=== PATIENT | male | born 1960 | race Caucasian/White ===

== ENCOUNTER 2019-01-06 15:33 | Outpatient (CLI) | payer OTHER ==
--- NOTE | 2019-01-06 16:13 | RAD ---
LUMBAR SPINE SERIES TWO TO THREE VIEWS: INDICATIONS: Disability exam. FINDINGS: There is mild degenerative change of the lumbar spine with mild endplate osteophytosis and slight dis k space narrowing. Multilevel facet osteoarthritis is present. There is levocurvature of the lumbar spine, centered at the mid aspect. No significant subluxation. IMPRESSION: Multilevel mild degenerative change of the lumbar spine, without acute compression fracture or signif icant subluxation identified. POS: JOSE
== END 2019-01-06 15:34 | disposition home or self-care (01) ==
LOC: BICRAD 15:33
PROVIDERS: ATTEND Internal Medicine
DX: Z02.71 Encounter for disability determination (principal); M47.816 Spondylosis without myelopathy or radiculopathy, lumbar region
CPT/HCPCS: 72100

== ENCOUNTER 2019-05-31 18:54 | Emergency (ER) | payer OTHER | END 2019-05-31 21:31 | disposition home or self-care (01) | LOC: ERS 18:54 | DX: T49.91XA Poisoning by unspecified topical agent, accidental (unintentional), initial encounter (principal); L25.3 Unspecified contact dermatitis due to other chemical products; E11.9 Type 2 diabetes mellitus without complications; Z79.4 Long term (current) use of insulin; Z79.82 Long term (current) use of aspirin; Z79.899 Other long term (current) drug therapy | CPT/HCPCS: 99282 ==

== ENCOUNTER 2019-08-21 07:42 | Emergency (ER) | payer OTHER ==
[2019-08-21] MEDS ORDERED: Dextrose 50% Abboject 50 ML SYRINGE ONE (07:47)
[2019-08-21 08:39] LABS: #Basophils 0.1 thou/uL (0.0-0.2); #Eosinphils 0.1 thou/uL (0.0-0.7); #Lymphocytes 1.9 thou/uL (1.20-3.40); #Monocytes 0.7 thou/uL (0.11-0.59); #Neutrophils 5.1 thou/uL (1.40-6.50); %Basophils 1.1 % (0.0-1.0); %Eosinophils 1.8 % (0.0-10.0); %Lymphocytes 24.3 % (21.0-51.0); %Monocytes 8.8 % (0.0-10.0); %Neutrophils 63.9 % (42.0-75.0); Hemoglobin 14.1 g/dL (14.0-18.0); Mean Corpuscular HGB CONC 32.4 g/dL (32.0-36.0); Mean Corpuscular Hemoglobin 30.5 pg (27.0-31.0); Mean Platelet Volume 7.2 fL (7.4-10.4); Platelet Count 241 thou/uL (130-400); RBC Distribution Width 12.4 % (11.5-14.5); Red Blood Cell (RBC) Count 4.63 mill/uL (4.70-6.10)
[2019-08-21 08:57] LABS: ALT (SGPT) 28 U/L (8-55); AST (SGOT) 34 U/L (5-34); Albumin 3.9 g/dL (3.5-5.0); Alkaline Phosphatase 54 U/L (40-110); Anion Gap 14 mmol/L (10-20); BUN (Urea Nitrogen) 19 mg/dL (8.4-25.7); Bilirubin, Total 0.6 mg/dL (0.2-1.2); Calc. Creatinine Clearance 0 mL/min (70-130); Calcium 8.4 mg/dL (7.8-10.44); Carbon Dioxide 23 mmol/L (22-29); Chloride 105 mmol/L (98-107); Estimated GFR-MDRD 66; Globulin 2.2 g/dL (2.4-3.5); Glucose 143 mg/dL (70-105); Protein, Total 6.1 g/dL (6.0-8.3); Sodium 138 mmol/L (136-145)
== END 2019-08-21 09:22 | disposition home or self-care (01) ==
LOC: ERS 07:42
DX: E11.649 Type 2 diabetes mellitus with hypoglycemia without coma (principal); E78.5 Hyperlipidemia, unspecified; E78.00 Pure hypercholesterolemia, unspecified; I10 Essential (primary) hypertension; Z79.4 Long term (current) use of insulin; Z79.899 Other long term (current) drug therapy; Z79.82 Long term (current) use of aspirin
CPT/HCPCS: 36415; 36416; 80053; 85025; 93005; 96374

== ENCOUNTER 2020-06-18 16:30 | Outpatient (CLI) | payer OTHER | END 2020-06-18 16:31 | disposition home or self-care (01) | LOC: SLEEPLAB 16:30 | PROVIDERS: ATTEND Family Medicine | DX: G47.33 Obstructive sleep apnea (adult) (pediatric) (principal); R53.83 Other fatigue; G47.00 Insomnia, unspecified; R06.83 Snoring; F41.9 Anxiety disorder, unspecified; E66.9 Obesity, unspecified; I10 Essential (primary) hypertension; E11.9 Type 2 diabetes mellitus without complications; G47.10 Hypersomnia, unspecified; F32.9 Major depressive disorder, single episode, unspecified; Z68.29 Body mass index [BMI] 29.0-29.9, adult | CPT/HCPCS: 95806 ==

== ENCOUNTER 2023-02-05 13:34 | Outpatient (CLI) | payer MEDICARE | END 2023-02-05 13:35 | disposition home or self-care (01) | LOC: RAD 13:34 | PROVIDERS: ATTEND Family Medicine | DX: M25.511 Pain in right shoulder (principal) ==

== ENCOUNTER 2023-03-07 07:01 | Outpatient (CLI) | payer MEDICARE | END 2023-03-07 07:02 | disposition home or self-care (01) | LOC: BICMRI 07:01 | PROVIDERS: ATTEND Surgery | DX: L97.929 Non-pressure chronic ulcer of unspecified part of left lower leg with unspecified severity (principal) | CPT/HCPCS: 82565 ==

== ENCOUNTER 2023-08-26 12:22 | Inpatient (IN) | payer MEDICARE ==
[2023-08-26] MEDS ORDERED: Ondansetron PF 4 MG/2 ML Vial IVP PRN (15:50)
[2023-08-26 15:52] LABS: #Basophils 0.1 thou/uL (0.0-0.2); #Monocytes 1.6 thou/uL (0.11-0.59); #Neutrophils 14.1 thou/uL (1.40-6.50); %Basophils 0.4 % (0.0-1.0); %Eosinophils 0.1 % (0.0-10.0); %Lymphocytes 10.3 % (21.0-51.0); %Neutrophils 79.8 % (42.0-75.0); Hematocrit 42.2 % (42.0-52.0); Hemoglobin 14.6 g/dL (14.0-18.0); Mean Corpuscular HGB CONC 34.6 g/dL (32.0-36.0); Mean Corpuscular Volume 86.8 fl (78.0-98.0); Mean Platelet Volume 9.7 fL (7.4-10.4); Platelet Count 261 10x3/uL (130-400); RBC Distribution Width 12.9 % (11.5-14.5); Red Blood Cell (RBC) Count 4.86 mill/uL (4.70-6.10); White Blood Cell (WBC) Count 17.6 10x3/uL (4.8-10.8)
[2023-08-26] MEDS ORDERED: Dextrose 50% Abboject 50 ML SYRINGE SLOW IVP PRN (15:59)
[2023-08-26] MEDS ORDERED: Morphine 2 MG/ML VIAL SLOW IVP PRN (15:59)
[2023-08-26] MEDS ORDERED: Morphine 4 MG/ML VIAL SLOW IVP PRN (15:59)
[2023-08-26] MEDS ORDERED: Glucagon 1 MG/ML KIT IM PRN (15:59)
[2023-08-26] MEDS ORDERED: Dextrose 5% in Water 1,000 ML IV PRN (15:59)
[2023-08-26] MEDS ORDERED: Sodium Chloride 0.9% 100 ML ONE ×2 (16:16→17:39)
[2023-08-26] MEDS ORDERED: Cefepime 2 GM VIAL ONE (16:16)
[2023-08-26] MEDS ORDERED: Boostrix 0.5 ML (Tdap) VIAL (>/=7 yrs of age) ONE (16:16)
[2023-08-26] MEDS ORDERED: EPINEPHrine 1 MG/ML VIAL ONE (16:37)
[2023-08-26] MEDS ORDERED: Bupivacaine 0.25% HCL 30 ML VIAL ONE (16:37)
[2023-08-26] MEDS ORDERED: Vancomycin 1 GM VIAL ONE (16:37)
[2023-08-26] MEDS ORDERED: fentaNYL PF 100 MCG/2 ML SYRINGE ONE ×2 (16:47→17:57)
[2023-08-26] MEDS ORDERED: PROPOFOL 20 ML ONE (16:47)
[2023-08-26] MEDS ORDERED: Lidocaine 1% PF 5 ML VIAL ONE (16:48)
[2023-08-26] MEDS ORDERED: Ondansetron PF 4 MG/2 ML Vial ONE (16:48)
[2023-08-26] MEDS ORDERED: Rocuronium Bromide 10 MG/ML (10ML VIAL) ONE (16:48)
[2023-08-26] MEDS ORDERED: Vancomycin 1 GM/200 ML (FROZEN) BAG ONE (16:53)
[2023-08-26] MEDS ORDERED: Phenylephrine 10 MG/ML VIAL ONE (17:39)
[2023-08-26] MEDS ORDERED: SUGAMMADEX SODIUM 200 MG/2 ML VIAL ONE (17:56)
[2023-08-26] MEDS ORDERED: Ketorolac Tromethamine 30 MG/ML VIAL IVP PRN (18:17)
[2023-08-26] MEDS ORDERED: Promethazine HCl 25 MG/ML VIAL IM PRN (18:17)
[2023-08-26] MEDS ORDERED: Ondansetron HCl/PF 4 MG/2 ML Vial IVP PRN (18:17)
[2023-08-26] MEDS ORDERED: HYDROmorphone 2 MG/ML VIAL SLOW IVP PRN (18:17)
[2023-08-26] MEDS ORDERED: Ketorolac Tromethamine 30 MG (1 mL) VIAL ONE (18:30)
[2023-08-26] MEDS ORDERED: HYDROcodone/Acetaminophen 10/325 mg Tablet PO PRN (18:32)
[2023-08-26] MEDS ORDERED: Communication Order-Pharmacy FS SCH (18:45)
[2023-08-26 19:50] LABS: ALT (SGPT) 16 U/L (8-55); AST (SGOT) 15 U/L (5-34); Albumin 3.3 g/dL (3.4-4.8); Alkaline Phosphatase 46 U/L (40-110); Anion Gap 13 mmol/L (10-20); BUN (Urea Nitrogen) 23 mg/dL (8.4-25.7); Bilirubin, Total 0.9 mg/dL (0.2-1.2); Calc. Creatinine Clearance 0 mL/min (70-130); Calcium 8.3 mg/dL (7.8-10.44); Carbon Dioxide 19 mmol/L (23-31); Chloride 105 mmol/L (98-107); Estimated GFR 68; Globulin 2.8 g/dL (2.4-3.5); Glucose 147 mg/dL (80-115); Protein, Total 6.1 g/dL (5.8-8.1); Sodium 133 mmol/L (136-145)
[2023-08-26] MEDS ORDERED: Vancomycin 1 GM in Premix 1 BAG IVPB SCH (21:00)
[2023-08-26 22:05] VITALS: BMI 28.3
[2023-08-27] MEDS: Vancomycin (BATCH) 1.5 GM in Premix 1 BAG IVPB SCH (01:10)
[2023-08-27 04:09] LABS: #Basophils 0.1 thou/uL (0.0-0.2); #Eosinphils 0.1 thou/uL (0.0-0.7); #Monocytes 1.1 thou/uL (0.11-0.59); #Neutrophils 9.9 thou/uL (1.40-6.50); %Basophils 0.4 % (0.0-1.0); %Eosinophils 0.6 % (0.0-10.0); %Lymphocytes 11.6 % (21.0-51.0); %Monocytes 8.7 % (0.0-10.0); %Neutrophils 78.3 % (42.0-75.0); Hematocrit 37.9 % (42.0-52.0); Hemoglobin 12.8 g/dL (14.0-18.0); Mean Corpuscular HGB CONC 33.8 g/dL (32.0-36.0); Mean Corpuscular Hemoglobin 30.5 pg (27.0-31.0); Mean Platelet Volume 9.6 fL (7.4-10.4); Platelet Count 222 10x3/uL (130-400); White Blood Cell (WBC) Count 12.7 10x3/uL (4.8-10.8)
[2023-08-27] MEDS: Cefepime 2 GM in Sodium Chloride 0.9% 100 ML IVPB SCH (04:10)
[2023-08-27 04:24] LABS: Anion Gap 13 mmol/L (10-20); BUN (Urea Nitrogen) 27 mg/dL (8.4-25.7); Calc. Creatinine Clearance 88 mL/min (70-130); Carbon Dioxide 22 mmol/L (23-31); Chloride 105 mmol/L (98-107); Estimated GFR 66; Glucose 129 mg/dL (80-115); Potassium 4.4 mmol/L (3.5-5.1); Sodium 136 mmol/L (136-145)
[2023-08-27 04:27] LABS: Mean Corpuscular Volume 90.2 fl (78.0-98.0)
[2023-08-27] MEDS ORDERED: glyBURIDE 5 MG TAB PO SCH (08:00)
[2023-08-27] MEDS: Aspirin Chewable 81 MG TAB PO SCH (09:30)
[2023-08-27] MEDS: Hydrochlorothiazide 25 MG TAB PO SCH (09:30)
[2023-08-27] MEDS: metFORMIN 500 MG TAB PO SCH (09:30)
[2023-08-27] MEDS: Lisinopril 20 MG TAB PO SCH (09:30)
[2023-08-27] MEDS: HumaLOG 300 UNITS/3 ML VIAL SC PRN (13:33)
[2023-08-27] MEDS: Amlodipine 5 MG TAB PO SCH (20:07)
[2023-08-27] MEDS: Atorvastatin Calcium 10 MG TAB PO SCH (20:10)
[2023-08-27] MEDS: Amitriptyline HCl 25 MG TAB PO SCH (20:11)
[2023-08-28 00:25] LABS: Vancomycin, Trough 15.9 ug/mL
[2023-08-28 11:52] VITALS: TEMP 98
[2023-08-28 15:44] VITALS: BP 147/64
[2023-08-29] MEDS ORDERED: FLU VACC QS2023-24(6MOS UP)/PF 60 MCG/0.5 ML SYRINGE IM ONE (09:00)
== END 2023-08-28 16:30 | disposition home or self-care (01) | DRG 513 ==
LOC: SUATTDRO 12:22 → ERS 12:22 → SURG A 19:06 → OBSVTOIN 08-27 16:20
PROVIDERS: ADMIT Family Medicine; ATTEND Internal Medicine
PROC: 3E033XZ Introduction of Vasopressor into Peripheral Vein, Percutaneous Approach (ICD-10-PCS; principal; 2023-08-26)
PROC: 0L970ZZ Drainage of Right Hand Tendon, Open Approach (ICD-10-PCS; 2023-08-26)
DX: M65.141 Other infective (teno)synovitis, right hand (principal); L03.113 Cellulitis of right upper limb; Z90.89 Acquired absence of other organs; Z79.4 Long term (current) use of insulin; E11.9 Type 2 diabetes mellitus without complications; E78.5 Hyperlipidemia, unspecified; I10 Essential (primary) hypertension; Z88.2 Allergy status to sulfonamides; Z79.82 Long term (current) use of aspirin; Z79.899 Other long term (current) drug therapy; E78.00 Pure hypercholesterolemia, unspecified
CPT/HCPCS: 36415; 36416; 51798; 80048; 80053; 80202; 83605; 85025; 86140; 87040; 87070; 87077; 87186; 87205; 90715; 96374; 96375; 96376; 97139; G0378; J0171; J0665; J0692; J1815; J1885; J2371; J2405; J2704; J3370; J3370-JW; J3490

== ENCOUNTER 2023-09-27 09:46 | Day surgery (SDC) | payer MEDICARE ==
[2023-09-24 13:19] VITALS: BMI 28.8
[2023-09-27] MEDS ORDERED: Dextrose 50% Abboject 50 ML SYRINGE ONE ×2 (11:50→15:00)
[2023-09-27] MEDS ORDERED: EPINEPHrine 1 MG/ML VIAL ONE (12:01)
[2023-09-27] MEDS ORDERED: Bupivacaine 0.25% HCL 30 ML VIAL ONE (12:01)
[2023-09-27] MEDS ORDERED: Vancomycin 1 GM VIAL ONE (12:02)
[2023-09-27] MEDS ORDERED: Clindamycin/D5W 900 mg/50 ml Premix Bag ONE (12:36)
[2023-09-27] MEDS ORDERED: fentaNYL 50 mcg/mL 1 mL Vial ONE (12:50)
[2023-09-27] MEDS ORDERED: PROPOFOL 20 ML ONE (12:50)
[2023-09-27] MEDS ORDERED: Lidocaine 2% PF 5 ML VIAL ONE (12:50)
[2023-09-27] MEDS ORDERED: PHENYLEPHRINE-NS 100 MCG/ML 10 ML SYRINGE ONE (13:42)
[2023-09-27] MEDS ORDERED: Ondansetron PF 4 MG/2 ML Vial ONE (13:59)
[2023-09-27] MEDS ORDERED: Ketorolac Tromethamine 30 MG (1 mL) VIAL ONE (14:06)
== END 2023-09-27 16:53 | disposition home or self-care (01) ==
LOC: SDC 09:46
PROVIDERS: ATTEND Orthopaedic Surgery
PROC: 0LN70ZZ Release Right Hand Tendon, Open Approach (ICD-10-PCS; principal; 2023-09-27)
DX: S66.114A Strain of flexor muscle, fascia and tendon of right ring finger at wrist and hand level, initial encounter (principal); E11.9 Type 2 diabetes mellitus without complications; Z79.84 Long term (current) use of oral hypoglycemic drugs; Z79.899 Other long term (current) drug therapy; X58.XXXA Exposure to other specified factors, initial encounter
CPT/HCPCS: 26350; 26440; 82962; J3010; 36416; J0171; J0665; J1885; J2001; J2405; J2704; J3370; J3490; J7999

== ENCOUNTER 2024-05-21 12:49 | Outpatient (CLI) | payer MEDICARE | END 2024-05-21 12:50 | disposition home or self-care (01) | LOC: SCSMRI 12:49 | PROVIDERS: ATTEND Orthopaedic Surgery Hand Surgery | DX: M72.0 Palmar fascial fibromatosis [Dupuytren] (principal); S66.114A Strain of flexor muscle, fascia and tendon of right ring finger at wrist and hand level, initial encounter; S66.116A Strain of flexor muscle, fascia and tendon of right little finger at wrist and hand level, initial encounter ==

== ENCOUNTER 2024-06-13 09:26 | Outpatient (CLI) | payer MEDICARE ==
[2024-06-13 11:00] LABS: #Basophils 0.07 10x3/uL (0.0-0.2); %Basophils 0.9 % (0.0-1.0); %Eosinophils 0.7 % (0.0-10.0); %Lymphocytes 16.1 % (21.0-51.0); %Monocytes 6.7 % (0.0-10.0); %Neutrophils 75.2 % (42.0-75.0); Hematocrit 39.9 % (42.0-52.0); Hemoglobin 13.8 g/dL (14.0-18.0); Mean Corpuscular HGB CONC 34.6 g/dL (32.0-36.0); Mean Corpuscular Volume 86.7 fL (78.0-98.0); Platelet Count 192 10x3/uL (130-400); RBC Distribution Width 12.7 % (11.5-14.5)
[2024-06-13 11:52] LABS: Anion Gap 14 mmol/L (10-20); BUN (Urea Nitrogen) 15 mg/dL (8.4-25.7); Calc. Creatinine Clearance 0 mL/min (70-130); Calcium 8.4 mg/dL (7.8-10.44); Carbon Dioxide 21 mmol/L (23-31); Estimated GFR 68; Glucose 259 mg/dL (80-115); Potassium 3.9 mmol/L (3.5-5.1)
[2024-06-13 12:17] LABS: Chloride 104 mmol/L (98-107); Sodium 135 mmol/L (136-145)
== END 2024-06-13 09:27 | disposition home or self-care (01) ==
LOC: LABBT 09:26
PROVIDERS: ATTEND Orthopaedic Surgery Hand Surgery
DX: Z01.818 Encounter for other preprocedural examination (principal); G56.03 Carpal tunnel syndrome, bilateral upper limbs; G56.23 Lesion of ulnar nerve, bilateral upper limbs; M72.0 Palmar fascial fibromatosis [Dupuytren]
CPT/HCPCS: 80048; 85025

== ENCOUNTER 2024-06-16 12:00 | Observation (INO) | payer MEDICARE ==
[2024-06-13 09:45] VITALS: BMI 30.2
[2024-06-16] MEDS ORDERED: Bacitracin Zinc Ointment 30 gm TUBE ONE (12:35)
[2024-06-16] MEDS ORDERED: Bupivacaine PF 0.5% 30 ML VIAL ONE (12:36)
[2024-06-16] MEDS ORDERED: CEFAZOLIN 2 GM VIAL ONE (12:56)
[2024-06-16] MEDS ORDERED: Midazolam HCl 2 mg/2 ml Vial ONE ×2 (13:39→14:10)
[2024-06-16] MEDS ORDERED: PROPOFOL 20 ML ONE (13:40)
[2024-06-16] MEDS ORDERED: fentaNYL 50 mcg/mL 1 mL Vial ONE (13:40)
[2024-06-16] MEDS ORDERED: Lidocaine 2% PF 5 ML VIAL ONE (13:45)
[2024-06-16] MEDS ORDERED: Dexamethasone 4 mg/ml Vial ONE (13:45)
[2024-06-16] MEDS ORDERED: Rocuronium Bromide 10 MG/ML (10ML VIAL) ONE (14:00)
[2024-06-16] MEDS ORDERED: Ketamine In 0.9 % NaCl 50 MG/5 ML SYRINGE ONE (14:09)
[2024-06-16] MEDS ORDERED: fentaNYL PF 100 MCG/2 ML SYRINGE ONE ×2 (14:14→19:06)
[2024-06-16] MEDS ORDERED: PHENYLEPHRINE-NS 100 MCG/ML 10 ML SYRINGE ONE ×2 (14:43→14:53)
[2024-06-16] MEDS ORDERED: ePHEDrine Sulfate 50 MG/10 ML VIAL ONE (14:57)
[2024-06-16] MEDS ORDERED: CEFAZOLIN 1 GM VIAL ONE (18:12)
[2024-06-16] MEDS ORDERED: SUGAMMADEX SODIUM 200 MG/2 ML VIAL ONE ×2 (19:02→20:02)
[2024-06-16] MEDS ORDERED: Ondansetron PF 4 MG/2 ML Vial ONE (19:03)
[2024-06-16] MEDS ORDERED: Ketorolac Tromethamine 30 MG (1 mL) VIAL ONE (20:10)
[2024-06-16] MEDS ORDERED: Morphine 4 MG/ML VIAL SLOW IVP PRN (20:15)
[2024-06-16] MEDS ORDERED: Promethazine HCl 25 MG/ML VIAL IM PRN (20:15)
[2024-06-16] MEDS ORDERED: traMADol HCl 50 MG TAB PO PRN (20:15)
[2024-06-16] MEDS ORDERED: Communication Order-Pharmacy FS SCH (20:15)
[2024-06-16] MEDS ORDERED: Acetaminophen 325 MG TAB PO PRN (20:15)
[2024-06-16] MEDS ORDERED: HYDROcodone/Acetaminophen 5/325 mg Tablet PO PRN (20:15)
[2024-06-16] MEDS ORDERED: Ondansetron PF 4 MG/2 ML Vial SLOW IVP PRN (20:15)
[2024-06-16] MEDS ORDERED: Meperidine HCl/PF 25 MG (1 mL) VIAL IM PRN (20:20)
[2024-06-16] MEDS: Aspirin 81 mg Enteric Coated Tablet PO SCH (22:11)
[2024-06-16] MEDS: CEFAZOLIN 2 GM in Sodium Chloride 0.9% 100 ML IVPB SCH (22:11)
[2024-06-17] MEDS: TETANUS, DIPHTHERIA TOX,ADULT (TDVAX) 0.5 ML VIAL IM ONE (06:36)
[2024-06-17] MEDS: Empagliflozin 25 MG TAB PO SCH (08:22)
[2024-06-17] MEDS: metFORMIN 500 MG TAB PO SCH (08:22)
[2024-06-17] MEDS: glyBURIDE 5 MG TAB PO SCH (08:22)
[2024-06-17] MEDS: Insulin Glargine 30 UNITS/0.3 ML VIAL SC SCH (08:22)
[2024-06-17] MEDS: Lisinopril 20 MG TAB PO SCH (08:22)
[2024-06-17] MEDS: Hydrochlorothiazide 25 MG TAB PO SCH (08:22)
[2024-06-17 11:45] VITALS: TEMP 97.6
[2024-06-17 16:10] VITALS: BP 138/64
[2024-06-17] MEDS ORDERED: Atorvastatin Calcium 10 MG TAB PO SCH (21:00)
[2024-06-17] MEDS ORDERED: Amlodipine 5 MG TAB PO SCH (21:00)
[2024-06-17] MEDS ORDERED: Amitriptyline HCl 25 MG TAB PO SCH (21:00)
== END 2024-06-17 18:44 | disposition home or self-care (01) ==
LOC: SDC 12:00 → SURG B 21:46
PROVIDERS: ADMIT Orthopaedic Surgery Hand Surgery; ATTEND Orthopaedic Surgery Hand Surgery
PROC: 01N50ZZ Release Median Nerve, Open Approach (ICD-10-PCS; principal; 2024-06-16)
PROC: 01N40ZZ Release Ulnar Nerve, Open Approach (ICD-10-PCS; 2024-06-16)
PROC: 0JNJ0ZZ Release Right Hand Subcutaneous Tissue and Fascia, Open Approach (ICD-10-PCS; 2024-06-16)
PROC: 0KNC0ZZ Release Right Hand Muscle, Open Approach (ICD-10-PCS; 2024-06-16)
PROC: 0RBW0ZZ Excision of Right Finger Phalangeal Joint, Open Approach (ICD-10-PCS; 2024-06-16)
PROC: 01S40ZZ Reposition Ulnar Nerve, Open Approach (ICD-10-PCS; 2024-06-16)
DX: G56.03 Carpal tunnel syndrome, bilateral upper limbs (principal); G56.23 Lesion of ulnar nerve, bilateral upper limbs; G47.33 Obstructive sleep apnea (adult) (pediatric); M72.0 Palmar fascial fibromatosis [Dupuytren]; I10 Essential (primary) hypertension; E78.5 Hyperlipidemia, unspecified; E11.40 Type 2 diabetes mellitus with diabetic neuropathy, unspecified; Z90.89 Acquired absence of other organs; Z88.1 Allergy status to other antibiotic agents; Z79.82 Long term (current) use of aspirin; Z79.84 Long term (current) use of oral hypoglycemic drugs; Z79.899 Other long term (current) drug therapy
CPT/HCPCS: 26121; 26440; 26525 ×2; 64704; 64718; 64721; 82962 ×2; A6223; J0665; J0690; J1100; J1885; J2250; J2405; J2704; J3010; J3490; 36416; 88304; J1815

== ENCOUNTER 2024-08-25 12:37 | Inpatient (IN) | payer MEDICARE ==
[~2024-08-25 12:37] MED LIST: Iopamidol-370 76% 500 ML MDV (1 ML CHARGE) ONE
[2024-08-25] MEDS ORDERED: Guaifenesin DM 100-10/5 ML UDCUP PO PRN (13:27)
[2024-08-25] MEDS ORDERED: Senokot S 8.6-50 MG TAB PO PRN (13:27)
[2024-08-25] MEDS ORDERED: Acetaminophen 325 MG TAB PO PRN (13:27)
[2024-08-25] MEDS ORDERED: Glucagon 1 MG/ML KIT IM PRN (13:55)
[2024-08-25] MEDS ORDERED: Dextrose 50% Abboject 50 ML SYRINGE SLOW IVP PRN (13:55)
[2024-08-25] MEDS ORDERED: Dextrose 5% in Water 1,000 ML IV PRN (13:55)
[2024-08-25 14:27] LABS: #Basophils 0.08 10x3/uL (0.0-0.2); %Basophils 0.9 % (0.0-1.0); %Lymphocytes 21.7 % (21.0-51.0); %Monocytes 6.6 % (0.0-10.0); %Neutrophils 68.3 % (42.0-75.0); Hematocrit 36.4 % (42.0-52.0); Hemoglobin 12.4 g/dL (14.0-18.0); Mean Corpuscular HGB CONC 34.1 g/dL (32.0-36.0); Mean Corpuscular Hemoglobin 29.3 pg (27.0-31.0); Mean Corpuscular Volume 86.1 fL (78.0-98.0); Mean Platelet Volume 8.9 fL (7.4-10.4); Platelet Count 294 10x3/uL (130-400); RBC Distribution Width 12.2 % (11.5-14.5); Red Blood Cell (RBC) Count 4.23 mill/uL (4.70-6.10)
[2024-08-25 14:46] LABS: CRP,High Sensitivity (Inhouse) 3.34 mg/dL (< or = 0.5)
[2024-08-25 14:47] LABS: ALT (SGPT) 16 U/L (Less than 45); AST (SGOT) 22 U/L (11-34); Albumin 2.8 g/dL (3.1-4.5); Alkaline Phosphatase 64 U/L (40-110); Anion Gap 14 mmol/L (10-20); BUN (Urea Nitrogen) 14 mg/dL (8.4-25.7); Bilirubin, Total 0.3 mg/dL (0.3-1.2); Calc. Creatinine Clearance 0 mL/min (70-130); Calcium 8.5 mg/dL (7.8-10.44); Carbon Dioxide 22 mmol/L (23-31); Chloride 104 mmol/L (98-107); Estimated GFR 76; Globulin 4.2 g/dL (2.4-3.5); Glucose 293 mg/dL (80-115); Potassium 3.9 mmol/L (3.5-5.1); Sodium 136 mmol/L (136-145)
[2024-08-25 15:56] VITALS: BMI 30.2
[2024-08-25] MEDS: Piperacillin/Tazobactam 3.375 GM in Sodium Chloride 0.9% 100 ML IVPB SCH ×2 (16:25→20:39)
[2024-08-25] MEDS: Sodium Chloride 0.9% 1,000 ML IV SCH (16:25)
[2024-08-25] MEDS: Vancomycin (BATCH) 2.5 GM in Premix 1 BAG IVPB SCH (17:00)
[2024-08-25] MEDS: Ondansetron PF 4 MG/2 ML Vial IVP PRN (17:11)
[2024-08-25] MEDS: Insulin Lispro 100 UNIT/ML 10 ML VIAL SC PRN (17:14)
[2024-08-25] MEDS: Amlodipine 5 MG TAB PO SCH (20:40)
[2024-08-25] MEDS: Amitriptyline HCl 25 MG TAB PO SCH (20:41)
[2024-08-25] MEDS: Insulin Glargine 30 UNITS/0.3 ML VIAL SC SCH (20:41)
[2024-08-25] MEDS ORDERED: Vancomycin (BATCH) 1.25 GM in Premix 1 BAG IVPB SCH (21:00)
[2024-08-25] MEDS ORDERED: Non-Formulary Item 1 EACH (Amitriptyline Hcl [Amitriptyline Hcl] 50 MG Tablet) PO SCH (21:00)
[2024-08-26 05:20] LABS: #Basophils 0.07 10x3/uL (0.0-0.2); %Basophils 0.6 % (0.0-1.0); %Eosinophils 1.4 % (0.0-10.0); %Lymphocytes 20.6 % (21.0-51.0); %Monocytes 6.5 % (0.0-10.0); %Neutrophils 70.2 % (42.0-75.0); Hematocrit 40.8 % (42.0-52.0); Hemoglobin 13.8 g/dL (14.0-18.0); Mean Corpuscular HGB CONC 33.8 g/dL (32.0-36.0); Mean Corpuscular Hemoglobin 29.1 pg (27.0-31.0); Mean Corpuscular Volume 85.9 fL (78.0-98.0); Mean Platelet Volume 8.7 fL (7.4-10.4); Platelet Count 302 10x3/uL (130-400); RBC Distribution Width 12.5 % (11.5-14.5); Red Blood Cell (RBC) Count 4.75 mill/uL (4.70-6.10)
[2024-08-26 05:34] LABS: Anion Gap 14 mmol/L (10-20); BUN (Urea Nitrogen) 15 mg/dL (8.4-25.7); Calc. Creatinine Clearance 102 mL/min (70-130); Calcium 8.2 mg/dL (7.8-10.44); Carbon Dioxide 20 mmol/L (23-31); Chloride 106 mmol/L (98-107); Estimated GFR 73; Glucose 187 mg/dL (80-115); Potassium 4.1 mmol/L (3.5-5.1); Sodium 136 mmol/L (136-145); Vancomycin, Random Less than 1.4 ug/mL (See Comment)
[2024-08-26] MEDS: Enoxaparin 40 MG (0.4 mL) SYRINGE SC SCH (07:53)
[2024-08-26] MEDS ORDERED: VANCOMYCIN 1.25 GM/250 ML BAG 1.25 GM in Premix 1 BAG IVPB SCH (08:00)
[2024-08-26] MEDS: Empagliflozin 25 MG TAB PO SCH (08:25)
[2024-08-26 08:38] LABS: Troponin I 0.062 ng/mL (< 0.028)
[2024-08-26] MEDS ORDERED: Empagliflozin 25 MG TAB PO SCH (09:00)
[2024-08-26] MEDS ORDERED: PROPOFOL 0 ML ONE (15:38)
[2024-08-26] MEDS ORDERED: fentaNYL PF 100 MCG/2 ML SYRINGE ONE (15:38)
[2024-08-26] MEDS ORDERED: Lidocaine 1% PF 5 ML VIAL ONE (15:40)
[2024-08-26] MEDS: Dextrose 50% Abboject 50 ML SYRINGE ONE (16:01)
[2024-08-26] MEDS ORDERED: Bupivacaine PF 0.5% 30 ML VIAL ONE (18:03)
[2024-08-26] MEDS: DAPTOmycin 650 MG in Sodium Chloride 0.9% 50 ML IVPB SCH (20:28)
[2024-08-26 21:26] LABS: Troponin I 0.029 ng/mL (< 0.028)
[2024-08-27 04:29] LABS: #Basophils 0.07 10x3/uL (0.0-0.2); %Basophils 0.9 % (0.0-1.0); %Eosinophils 4.7 % (0.0-10.0); %Lymphocytes 26.5 % (21.0-51.0); %Monocytes 8.5 % (0.0-10.0); %Neutrophils 58.8 % (42.0-75.0); Hematocrit 35.9 % (42.0-52.0); Hemoglobin 11.8 g/dL (14.0-18.0); Mean Corpuscular HGB CONC 32.9 g/dL (32.0-36.0); Mean Corpuscular Hemoglobin 29.1 pg (27.0-31.0); Mean Corpuscular Volume 88.6 fL (78.0-98.0); Mean Platelet Volume 8.7 fL (7.4-10.4); Platelet Count 292 10x3/uL (130-400); RBC Distribution Width 12.4 % (11.5-14.5); Red Blood Cell (RBC) Count 4.05 mill/uL (4.70-6.10)
[2024-08-27 04:46] LABS: ALT (SGPT) 14 U/L (Less than 45); AST (SGOT) 21 U/L (11-34); Albumin 2.6 g/dL (3.1-4.5); Alkaline Phosphatase 52 U/L (40-110); Anion Gap 13 mmol/L (10-20); BUN (Urea Nitrogen) 12 mg/dL (8.4-25.7); Bilirubin, Total 0.4 mg/dL (0.3-1.2); Calc. Creatinine Clearance 117 mL/min (70-130); Calcium 8.2 mg/dL (7.8-10.44); Carbon Dioxide 21 mmol/L (23-31); Chloride 107 mmol/L (98-107); Estimated GFR 86; Globulin 3.7 g/dL (2.4-3.5); Glucose 111 mg/dL (80-115); Potassium 3.7 mmol/L (3.5-5.1); Protein, Total 6.3 g/dL (5.8-8.1); Sodium 137 mmol/L (136-145)
[2024-08-27] MEDS ORDERED: Dexamethasone 20 MG/5 ML VIAL ONE (15:35)
[2024-08-27] MEDS ORDERED: Ondansetron PF 4 MG/2 ML Vial ONE (15:35)
[2024-08-27] MEDS ORDERED: PROPOFOL 20 ML ONE (15:35)
[2024-08-27] MEDS ORDERED: fentaNYL PF 100 MCG/2 ML SYRINGE ONE (15:35)
[2024-08-27] MEDS ORDERED: Lidocaine 1% PF 5 ML VIAL ONE (15:35)
[2024-08-27] MEDS ORDERED: Bupivacaine PF 0.5% 30 ML VIAL ONE (16:53)
[2024-08-27] MEDS ORDERED: Ondansetron HCl/PF 4 MG/2 ML Vial IVP PRN (17:28)
[2024-08-27] MEDS ORDERED: Promethazine HCl 25 MG/ML VIAL IM PRN (17:28)
[2024-08-27] MEDS ORDERED: Labetalol HCl 100 MG/20 ML VIAL ONE (17:31)
[2024-08-27] MEDS: Labetalol HCl 100 MG/20 ML VIAL SLOW IVP SCH (19:49)
[2024-08-27] MEDS: hydrALAZINE 20 MG/ML VIAL SLOW IVP PRN (23:27)
[2024-08-28 04:13] LABS: #Basophils 0.07 10x3/uL (0.0-0.2); %Basophils 0.6 % (0.0-1.0); %Eosinophils 1.4 % (0.0-10.0); %Lymphocytes 10.5 % (21.0-51.0); %Monocytes 8.1 % (0.0-10.0); %Neutrophils 78.9 % (42.0-75.0); Hematocrit 37.8 % (42.0-52.0); Hemoglobin 12.3 g/dL (14.0-18.0); Mean Corpuscular HGB CONC 32.5 g/dL (32.0-36.0); Mean Corpuscular Hemoglobin 28.9 pg (27.0-31.0); Mean Corpuscular Volume 88.7 fL (78.0-98.0); Mean Platelet Volume 8.7 fL (7.4-10.4); Platelet Count 304 10x3/uL (130-400); RBC Distribution Width 12.6 % (11.5-14.5); Red Blood Cell (RBC) Count 4.26 mill/uL (4.70-6.10)
[2024-08-28 04:33] LABS: ALT (SGPT) 12 U/L (Less than 45); AST (SGOT) 19 U/L (11-34); Albumin 2.7 g/dL (3.1-4.5); Alkaline Phosphatase 60 U/L (40-110); Anion Gap 14 mmol/L (10-20); BUN (Urea Nitrogen) 15 mg/dL (8.4-25.7); Bilirubin, Total 0.4 mg/dL (0.3-1.2); CK (CPK) 46 U/L (30-200); Calc. Creatinine Clearance 107 mL/min (70-130); Calcium 8.5 mg/dL (7.8-10.44); Carbon Dioxide 21 mmol/L (23-31); Chloride 106 mmol/L (98-107); Estimated GFR 78; Globulin 4.1 g/dL (2.4-3.5); Glucose 211 mg/dL (80-115); Potassium 3.9 mmol/L (3.5-5.1); Protein, Total 6.8 g/dL (5.8-8.1); Sodium 137 mmol/L (136-145)
[2024-08-29 05:49] LABS: #Basophils 0.05 10x3/uL (0.0-0.2); %Basophils 0.5 % (0.0-1.0); %Eosinophils 3.5 % (0.0-10.0); %Lymphocytes 13.8 % (21.0-51.0); %Monocytes 9.5 % (0.0-10.0); %Neutrophils 72.3 % (42.0-75.0); Hematocrit 37.1 % (42.0-52.0); Hemoglobin 12.4 g/dL (14.0-18.0); Mean Corpuscular HGB CONC 33.4 g/dL (32.0-36.0); Mean Corpuscular Hemoglobin 29.1 pg (27.0-31.0); Mean Corpuscular Volume 87.1 fL (78.0-98.0); Mean Platelet Volume 8.5 fL (7.4-10.4); Platelet Count 260 10x3/uL (130-400); RBC Distribution Width 12.5 % (11.5-14.5); Red Blood Cell (RBC) Count 4.26 mill/uL (4.70-6.10)
[2024-08-29 06:34] LABS: ALT (SGPT) 11 U/L (Less than 45); AST (SGOT) 18 U/L (11-34); Albumin 2.6 g/dL (3.1-4.5); Alkaline Phosphatase 55 U/L (40-110); Anion Gap 14 mmol/L (10-20); BUN (Urea Nitrogen) 12 mg/dL (8.4-25.7); Bilirubin, Total 0.7 mg/dL (0.3-1.2); Calc. Creatinine Clearance 107 mL/min (70-130); Calcium 8.7 mg/dL (7.8-10.44); Carbon Dioxide 22 mmol/L (23-31); Chloride 105 mmol/L (98-107); Estimated GFR 88; Globulin 4.3 g/dL (2.4-3.5); Glucose 121 mg/dL (80-115); Potassium 3.8 mmol/L (3.5-5.1); Protein, Total 6.9 g/dL (5.8-8.1); Sodium 137 mmol/L (136-145)
[2024-08-29] MEDS: cefTRIAXone (ROCEPHIN) 2 GM VIAL ONE (10:26)
[2024-08-29] MEDS: cefTRIAXone\\ROCEPHIN 2 GM in Sodium Chloride 0.9% 100 ML IVPB SCH (10:26)
[2024-08-30 05:23] LABS: #Basophils 0.07 10x3/uL (0.0-0.2); %Basophils 0.8 % (0.0-1.0); %Eosinophils 4.3 % (0.0-10.0); %Lymphocytes 20.4 % (21.0-51.0); %Monocytes 8.4 % (0.0-10.0); %Neutrophils 65.5 % (42.0-75.0); Hematocrit 38.3 % (42.0-52.0); Hemoglobin 12.7 g/dL (14.0-18.0); Mean Corpuscular HGB CONC 33.2 g/dL (32.0-36.0); Mean Corpuscular Hemoglobin 28.3 pg (27.0-31.0); Mean Corpuscular Volume 85.3 fL (78.0-98.0); Mean Platelet Volume 8.5 fL (7.4-10.4); Platelet Count 289 10x3/uL (130-400); RBC Distribution Width 12.5 % (11.5-14.5); Red Blood Cell (RBC) Count 4.49 mill/uL (4.70-6.10)
[2024-08-30 05:50] LABS: ALT (SGPT) 10 U/L (Less than 45); AST (SGOT) 21 U/L (11-34); Albumin 2.7 g/dL (3.1-4.5); Alkaline Phosphatase 54 U/L (40-110); Anion Gap 15 mmol/L (10-20); BUN (Urea Nitrogen) 16 mg/dL (8.4-25.7); Bilirubin, Total 0.6 mg/dL (0.3-1.2); Calc. Creatinine Clearance 115 mL/min (70-130); Calcium 8.9 mg/dL (7.8-10.44); Carbon Dioxide 22 mmol/L (23-31); Chloride 103 mmol/L (98-107); Estimated GFR 97; Globulin 4.5 g/dL (2.4-3.5); Glucose 105 mg/dL (80-115); Potassium 3.7 mmol/L (3.5-5.1); Protein, Total 7.2 g/dL (5.8-8.1); Sodium 136 mmol/L (136-145)
[2024-08-30] MEDS: Atorvastatin Calcium 10 MG TAB PO SCH (21:15)
[2024-08-30] MEDS: Insulin Lispro 100 UNIT/ML 10 ML VIAL SC PRN (21:46)
[2024-08-31 05:32] LABS: #Basophils 0.05 10x3/uL (0.0-0.2); %Basophils 0.6 % (0.0-1.0); %Eosinophils 4.1 % (0.0-10.0); %Lymphocytes 18.5 % (21.0-51.0); %Monocytes 8.9 % (0.0-10.0); %Neutrophils 67.3 % (42.0-75.0); Hematocrit 40.9 % (42.0-52.0); Hemoglobin 13.8 g/dL (14.0-18.0); Mean Corpuscular HGB CONC 33.7 g/dL (32.0-36.0); Mean Corpuscular Hemoglobin 28.7 pg (27.0-31.0); Mean Platelet Volume 8.9 fL (7.4-10.4); Platelet Count 297 10x3/uL (130-400); RBC Distribution Width 12.5 % (11.5-14.5); Red Blood Cell (RBC) Count 4.81 mill/uL (4.70-6.10)
[2024-08-31 05:53] LABS: ALT (SGPT) 9 U/L (Less than 45); AST (SGOT) 19 U/L (11-34); Albumin 2.8 g/dL (3.1-4.5); Alkaline Phosphatase 54 U/L (40-110); Anion Gap 14 mmol/L (10-20); BUN (Urea Nitrogen) 20 mg/dL (8.4-25.7); Bilirubin, Total 0.4 mg/dL (0.3-1.2); Calc. Creatinine Clearance 111 mL/min (70-130); Calcium 9.1 mg/dL (7.8-10.44); Carbon Dioxide 21 mmol/L (23-31); Chloride 104 mmol/L (98-107); Estimated GFR 93; Globulin 4.5 g/dL (2.4-3.5); Glucose 124 mg/dL (80-115); Potassium 4.1 mmol/L (3.5-5.1); Protein, Total 7.3 g/dL (5.8-8.1); Sodium 135 mmol/L (136-145)
[2024-08-31] MEDS: Insulin Lispro 100 UNIT/ML 10 ML VIAL SC PRN (16:42)
[2024-09-01] MEDS ORDERED: Lidocaine 1% PF 5 ML VIAL ONE (11:03)
[2024-09-01] MEDS ORDERED: Sodium Bicarbonate 2.5 MEQ/5 ML SDV ONE (11:03)
[2024-09-02 11:41] VITALS: BMI 27.0
[2024-09-02 16:16] VITALS: BP 150/76; TEMP 98
== END 2024-09-02 16:00 | disposition home or self-care (01) | DRG 617 ==
LOC: T4-B 12:37 → IMCU/EMU 18:57 → SURG A 08-29 11:18
PROVIDERS: ADMIT Hospitalist; ATTEND Internal Medicine
PROC: 0Y6M0ZD Detachment at Right Foot, Partial 4th Ray, Open Approach (ICD-10-PCS; principal; 2024-08-27)
DX: E11.69 Type 2 diabetes mellitus with other specified complication (principal); E11.52 Type 2 diabetes mellitus with diabetic peripheral angiopathy with gangrene; L02.611 Cutaneous abscess of right foot; M86.8X7 Other osteomyelitis, ankle and foot; E11.51 Type 2 diabetes mellitus with diabetic peripheral angiopathy without gangrene; I10 Essential (primary) hypertension; E78.5 Hyperlipidemia, unspecified; Z88.2 Allergy status to sulfonamides; Z89.421 Acquired absence of other right toe(s); Z89.512 Acquired absence of left leg below knee; B96.4 Proteus (mirabilis) (morganii) as the cause of diseases classified elsewhere; B95.8 Unspecified staphylococcus as the cause of diseases classified elsewhere; R55 Syncope and collapse
CPT/HCPCS: 36415; 36416; 36572; 70450; 71275; 80048; 80053; 80202; 82550; 84484; 85025; 85379; 86141; 87040; 87070; 87076; 87077; 87186; 87205; 93005; 93010; 93306; C1751; J0360; J0665; J0696; J0878; J1100; J1650; J1815; J2405; J2543; J2704; J3370; J7030; J7999; Q9967

== ENCOUNTER 2025-04-21 11:35 | Outpatient (CLI) | payer MEDICARE ==
[2025-04-21 12:43] LABS: #Basophils 0.09 10x3/uL (0.0-0.2); #Eosinophils 0.48 10x3/uL (0.0-0.7); #Monocytes 0.75 10x3/uL (0.11-0.59); #Neutrophils 7.11 10x3/uL (1.40-6.50); %Basophils 0.9 % (0.0-1.0); %Eosinophils 4.6 % (0.0-10.0); %Lymphocytes 18.7 % (21.0-51.0); %Monocytes 7.2 % (0.0-10.0); %Neutrophils 68.3 % (42.0-75.0); Hematocrit 44.2 % (42.0-52.0); Hemoglobin 15.2 g/dL (14.0-18.0); Mean Corpuscular Hemoglobin 29.4 pg (27.0-31.0); Mean Corpuscular Volume 85.5 fL (78.0-98.0); Platelet Count 225 10x3/uL (130-400); Red Blood Cell (RBC) Count 5.17 mill/uL (4.70-6.10); White Blood Cell (WBC) Count 10.41 10x3/uL (4.8-10.8)
[2025-04-21 13:20] LABS: Anion Gap 20 mmol/L (10-20); BUN (Urea Nitrogen) 19 mg/dL (8.4-25.7); Calc. Creatinine Clearance 0 mL/min (70-130); Calcium 8.9 mg/dL (7.8-10.44); Carbon Dioxide 23 mmol/L (23-31); Chloride 102 mmol/L (98-107); Glucose 279 mg/dL (80-115); Potassium 3.9 mmol/L (3.5-5.1); Sodium 141 mmol/L (136-145)
== END 2025-04-21 11:36 | disposition home or self-care (01) ==
LOC: LABBT 11:35
PROVIDERS: ATTEND Orthopaedic Surgery Hand Surgery
DX: Z01.818 Encounter for other preprocedural examination (principal); M15.2 Bouchard's nodes (with arthropathy); M24.541 Contracture, right hand; M65.332 Trigger finger, left middle finger
CPT/HCPCS: 85025; 93005; 93010